=== PATIENT | male | born 1955 | race Caucasian/White ===

== ENCOUNTER → 2019-01-22 12:43 | Outpatient (CLI) | payer OTHER, SELFPAY ==
--- NOTE | 2019-01-22 12:50 | XR_ITS ---
XR shoulder LT min 2V HISTORY: Pain following injury ITS.REASON: 3 views ORDERING PHYSICIAN: Rebeca Matias MD PATIENT AGE: 63 years Comparison: 01/17/2019 FINDINGS: There remains prominence of the AC joint space with minimal ossification in the joint space. The glenohumeral joint has an unremarkable appearance. No acute fracture is evident. IMPRESSION: No change in AC joint separation
== END ==
PROVIDERS: PCP Physician Assistant Medical; Visit Provider Orthopaedic Surgery
DX: S43.102A Unspecified dislocation of left acromioclavicular joint, initial encounter (principal)
CPT/HCPCS: 73030

== ENCOUNTER → 2019-02-24 15:24 | Outpatient (CLI) | payer OTHER, SELFPAY ==
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
== END ==
PROVIDERS: PCP Physician Assistant Medical; Visit Provider Orthopaedic Surgery
DX: S49.91XA Unspecified injury of right shoulder and upper arm, initial encounter (principal)
CPT/HCPCS: 73050

== ENCOUNTER → 2019-05-30 15:39 | Outpatient (CLI) | payer OTHER, SELFPAY ==
--- NOTE | 2019-05-30 15:44 | MR_ITS ---
PROCEDURE: MR SHOULDER LT WO CON CLINICAL INDICATION: Ac Joint pain Left shoulder injury with pain, shoulder separation, limited range of motion, AC separation COMPARISON: XR AC JOINT LT from 05/30/2019 TECHNIQUE: Routine multiplanar multi echo sequences are performed without gadolinium enhancement. FINDINGS: There is thickening of the supraspinatus tendon with full-thickness tear involving the main portion/anterior aspect of the supraspinatus tendon. There are some intact fibers posteriorly. The muscle and tendon are not retracted. There is separation of the acromioclavicular joint with fluid in the AC joint space and edema in the region of the acromioclavicular joint. The infraspinatus tendon, subscapularis tendon, and teres minor tendons appear intact. No obvious labral tear. Bicipital tendon is in the expected location. Small subarticular cystic changes are present at the greater tuberosity IMPRESSION: 1. Acromioclavicular separation with edema at the acromioclavicular joint space 2. Full-thickness tear of the anterior aspect and main body portion of the supraspinatus tendon with some intact fibers posteriorly. No muscle or tendon retraction Dictated by: Zana Cabrera MD 05/31/2019 06:57 Electronically signed by Zana Cabrera MD in [place] 05/31/2019 11:15
--- NOTE | 2019-05-30 15:44 | XR_ITS ---
PROCEDURE: XR AC JOINT LT CLINICAL INDICATION: Ac joint pain , Previous injury COMPARISON: MRI scan left shoulder 05/30/2019 FINDINGS: The clavicle is intact. There is a gap between the distal clavicle and acromion process of 1.7 cm consistent with [id number] AC separation. The humeral head and glenoid appear normal. There are no soft tissue calcifications. The left upper 3-4 ribs appear intact. IMPRESSION: Moderate and likely posttraumatic AC separation as noted Dictated by: Dr. Kemar Hutchins MD 06/01/2019 11:[address] Kemar Hutchins MD in [place] 06/01/2019 11:02
== END ==
PROVIDERS: PCP Physician Assistant Medical; Referring Provider Orthopaedic Surgery; Visit Provider Orthopaedic Surgery
DX: M25.512 Pain in left shoulder (principal)
CPT/HCPCS: 73050; 73221

== ENCOUNTER → 2021-08-11 10:16 | Outpatient (CLI) | payer BC, SELFPAY | PROVIDERS: Visit Provider Nurse Practitioner | DX: Z20.822 Contact with and (suspected) exposure to COVID-19 (principal) | CPT/HCPCS: C9803; U0003; U0005 ==

== ENCOUNTER → 2021-08-15 09:38 | Outpatient (CLI) | payer BC, SELFPAY | PROVIDERS: PCP Physician Assistant Medical; Visit Provider Nurse Practitioner | DX: Z20.822 Contact with and (suspected) exposure to COVID-19 (principal) | CPT/HCPCS: C9803; U0003; U0005 ==

== ENCOUNTER 2021-12-16 19:18 | Emergency (ER) | payer BC, SELFPAY ==
[2021-12-16 19:19] VITALS: BP 182/87; PULSE 76; RESP 18; TEMP 36.6; O2SAT 97; BMI 36.6
[2021-12-16 19:50] VITALS: BP 174/98; PULSE 79; RESP 22; O2SAT 97; BMI 32.3
--- NOTE | 2021-12-16 19:55 | HMH.EDUTC ---
[facility] [place] Condition on Discharge: Fair Time of Disposition: 20:13 <Virginia Snowden - Last Filed: 12/16/21 19:55> <Rene Cerna - Last Filed: 12/16/21 21:13> Clinical Impression: Chest discomfort, Hypertensive emergency Chest pain Qualifiers: Chest pain type: unspecified Qualified Code(s): R07.9 - Chest pain, unspecified Disposition: Home, Self-Care Instructions: DI for Chest Pain Additional Instructions: use meds and call pcp for follow up and recheck if needed Referrals: Nata Vazquez PA [Primary Care Provider] - Dev Langston MD [Staff Physician] - Medical Decision Making - Herman Inquiry Pt receiving controlled substance: No Herman was queried for this patient: No <Virginia Snowden - Last Filed: 12/16/21 19:55> - Lab Data Lab results reviewed: Yes: I reviewed the patient's lab results. Result diagrams: 12/16/21 20:00 12/16/21 20:00 - JOSE GUADALUPE Score for Non-Stemi Age of Patient: 60-69 years old Heart Rate: 70-89 bpm Systolic Blood Pressure: 160-199 mmHg Serum Creatinine: 0.80-1.19 mg/dl CHF [place] Class: I-No CHF Other Risk Factors: None Non-Stemi Risk Score: 84 <Rene Cerna - Last Filed: 12/16/21 21:13> Vital Signs: 12/16/21 19:19 12/16/21 19:50 12/16/21 20:05 Temperature 97.8 F Temperature Source Oral Pulse Rate 76 Pulse Rate [Left] 76 79 Respiratory Rate 18 22 14 Blood Pressure 182/87 H Blood Pressure [Right Arm] 182/87 H 174/98 H Blood Pressure Mean [Right Arm] 118 123 Blood Pressure Source [Right Arm] Automatic Cuff 02 Sat by Pulse Oximetry 97 97 95 Oxygen Delivery Method Room Air Room Air - Lab Data Lab Results 12/16/21 20:00: WBC 5.6, RBC 4.88, Hgb 15.5, Hct 44.6, MCV 91.4, MCH 31.7 H, MCHC 34.7, RDW 13.1, Plt Count 238, MPV 7.9, Neut % (Auto) 59.7, Lymph % (Auto) 23.4, [place] % (Auto) 12.4 H, Eos % (Auto) 2.4, Baso % (Auto) 2.1 H, Neut # (Auto) 3.3, Lymph # (Auto) 1.3, [place] # (Auto) 0.7, Eos # (Auto) 0.1, Baso # (Auto) 0.1, ESR 14 12/16/21 20:00: Sodium 137, Potassium 4.0, Chloride 104, Carbon Dioxide 26, Anion Gap 11.0, BUN 17, Creatinine 0.80, Estimated Creat Clear 106, Estimated GFR 97, Est GFR ( Amer) 117, Glucose 221 H, Calcium 9.6, Troponin I < 0.01, C-Reactive Protein 3.1 12/16/21 20:00: Total Bilirubin 0.4, Direct Bilirubin 0.1, Conjugated Bilirubin 0.0, Indirect Bilirubin 0.3, Unconjugated Bilirubin 0.3, AST 61 H, ALT 83 H, Alkaline Phosphatase 108, Total Protein 7.0, Albumin 4.2 12/16/21 20:00: Hemoglobin A1c 7.1 H Orders (Tests/Meds): ED MEDICATIONS Generic Name Dose Route Start Last Admin Trade Name Freq PRN Reason Stop Dose Admin Sodium Chloride 1,000 mls @ 999 mls/hr 12/16/21 20:15 12/16/21 20:08 Sod Chlor 0.9% 1000ml Bag IV 12/16/21 21:15 999 mls/hr .Q1H1M ALTHEA Administration Sodium Chloride 10 ml 12/16/21 20:05 Sodium Chloride 0.9% 10ml Flush Syringe IV 01/15/22 20:04 NEEDED PRN Maintain IV Site Sodium Chloride 8 ml 12/16/21 20:35 Sodium Chloride 0.9% 10ml Vial IV 01/15/22 20:34 NEEDED PRN dilute pepcid Discontinued Medications Generic Name Dose Route Start Last Admin Trade Name Freq PRN Reason Stop Dose Admin Aspirin 243 mg 12/16/21 20:06 12/16/21 20:09 Aspirin 81mg Chewable Tablet PO 12/16/21 20:07 243 mg ONCE ONE Administration Famotidine 20 mg 12/16/21 20:35 12/16/21 20:50 Famotidine 20mg/2ml Vial IV 12/16/21 20:36 20 mg ONCE ONE Administration Metoclopramide HCl 10 mg 12/16/21 20:35 12/16/21 20:50 Metoclopramide Hcl 10mg/2ml Vial IVP 12/16/21 20:36 10 mg ONCE ONE Administration ORDERS Category Date Time Status T4 (Thyroxine) Stat Lab 12/16/21 21:08 Ordered TSH [Thyroid Stimulating Hormone] Stat Lab 12/16/21 21:08 Ordered Troponin I Q3H Lab 12/16/21 23:15 Ordered Troponin I Q3H Lab 12/17/21 02:15 Ordered Urinalysis-Acute [Urinalysis and Microscopic] Stat Lab 12/16/21 20:05 Ordered Medical Dec
--- NOTE | 2021-12-16 19:57 | ECG_ITS ---
APPROVED REPORT Exam: Resting ECG HR:75 bpm ECG Measurements Heart Rate 75 AXES MS 191 P 22 QRSd 102 QRS 39 QT 367 T 38 QTc 396 Conclusion SINUS RHYTHM NORMAL ECG UNCONFIRMED REPORT Electronically signed by : Tam Palma MD 12/17/2021 09:03:10
[2021-12-16 20:05] VITALS: BP 182/87; PULSE 76; RESP 14; O2SAT 95
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
[2021-12-16 20:14] LABS: Basophils # 0.1 K/mm3 (0-0.2); Basophils % 2.1 % (0.1-2.0); Chloride 104 mmol/L (98-107); Eosinophils # 0.1 K/mm3 (0.0-0.4); Eosinophils % 2.4 % (0.1-12.0); Hematocrit 44.6 % (42.0-52.0); Hemoglobin 15.5 g/dL (14.1-18.0); Lymphocytes # 1.3 K/mm3 (0.7-4.5); Lymphocytes % 23.4 % (10-50); Mean Corpuscular HGB Conc 34.7 g/dL (31.8-35.4); Mean Corpuscular Hemoglobin 31.7 pg (27.0-31.2); Mean Corpuscular Volume 91.4 fl (80-94); Mean Platelet Volume 7.9 fl (7.4-10.4); Monocytes # 0.7 K/mm3 (0.1-1.0); Monocytes % 12.4 % (1.7-9.3); Neutrophils # 3.3 K/mm3 (1.8-7.8); Neutrophils % 59.7 % (37.0-80.0); Platelet Count 238 K/mm3 (142-424); Red Blood Count 4.88 M/mm3 (4.60-6.20); Red Cell Distribution Width 13.1 % (11.5-17.5); Sodium 137 mmol/L (136-145); White Blood Count 5.6 K/mm3 (4.8-10.8)
[2021-12-16 20:17] LABS: Blood Urea Nitrogen 17 mg/dl (9-20); Calcium 9.6 mg/dl (8.4-10.2); Carbon Dioxide 26 mmol/L (22.0-30.0); Creatinine Clearance Estimated 106 mL/min (50-200); Estimated Glomerular Filt Rate 97 ml/min (>60); GFR (African American) 117 ML/MIN (>60); Glucose 221 mg/dl (74-100)
--- NOTE | 2021-12-16 20:18 | PC.NURSE ---
pt going to xray
[2021-12-16 20:22] LABS: C-Reactive Protein 3.1 mg/L (0-4)
[2021-12-16 20:29] LABS: Alanine Aminotransferase 83 U/L (12-78); Albumin Level 4.2 g/dl (3.5-5.0); Alkaline Phosphatase 108 U/L (38-126); Aspartate Amino Transferase 61 U/L (17-59); Bilirubin,Direct 0.1 mg/dl (0.0-0.4); Bilirubin,Indirect 0.3 mg/dL (0.0-0.9); Bilirubin,Total 0.4 mg/dl (0.2-1.3); Bilirubin,Unconjugated 0.3 mg/dL (0.0-1.1)
[2021-12-16 20:31] LABS: Troponin I < 0.01 ng/ml (0.00-0.034)
[2021-12-16 20:38] LABS: Erythrocyte Sedimentation Rate 14 mm/hr (0-20)
[2021-12-16 20:49] LABS: Hemoglobin A1C 7.1 % (4.0-6.0)
--- NOTE | 2021-12-16 21:03 | PC.NURSE ---
ER speaking with pt at this time
[2021-12-16 21:07] VITALS: BP 149/88; PULSE 74; RESP 19; TEMP 36.7; O2SAT 95
[2021-12-16 21:38] LABS: T4 (Thyroxine) 10.2 ug/dl (5.53-11.0)
[2021-12-16 21:51] LABS: Thyroid Stimulating Hormone 2.86 uIU/mL (0.465-4.68)
== END 2021-12-16 21:19 | disposition home or self-care (01) ==
LOC: ER 19:28 → UTC 19:28 → ER 19:54
PROVIDERS: Emergency Medicine; Emergency Provider Emergency Medicine; PCP Physician Assistant Medical
DX: R07.9 Chest pain, unspecified (principal); I16.1 Hypertensive emergency; Z79.899 Other long term (current) drug therapy
CPT/HCPCS: 71046; 80048; 80076; 83036; 84436; 84443; 84484; 85025; 85651; 86140; 93005; 96365; 96375; 99284

== ENCOUNTER → 2023-05-29 17:02 | Outpatient (CLI) | payer OTHER, BC, SELFPAY ==
--- NOTE | 2023-05-29 17:18 | XR_ITS ---
PROCEDURE INFORMATION: Exam: XR Chest Exam date and time: 05/29/2023 5:16 PM Age: 68 years old Clinical indication: Patient HX: Preop, HTN, shoulder SX; Additional info: SOA TECHNIQUE: Imaging protocol: Radiologic exam of the chest. Views: 2 views. COMPARISON: CR XR CHEST 2V 12/16/2021 8:11 PM FINDINGS: Lungs: No evidence of acute pulmonary disease or infiltrates; lung nuno appear clear. Pleural spaces: No evidence of pleural effusion, pneumothorax, or pleural thickening in the visualized pleural spaces. Heart/Mediastinum: No evidence of mediastinal widening or cardiac silhouette enlargement; the mediastinum and heart appear within normal limits for contour and size. Bones/joints: No evidence of acute osseous abnormalities within the visualized portions of the thoracic spine and ribs. Osseous structures appear appropriate for patient age. IMPRESSION: Negative study. No acute cardiopulmonary abnormalities identified. Osseous structures within the visualized portions of the thoracic spine and ribs show no acute abnormalities and appear appropriate for patient age.
== END ==
PROVIDERS: PCP Physician Assistant Medical; Visit Provider Physician Assistant Medical
DX: Z01.811 Encounter for preprocedural respiratory examination (principal)
CPT/HCPCS: 71046

== ENCOUNTER 2024-10-15 11:56 | Day surgery (SDC) | payer MEDICARE, SELFPAY ==
[2024-10-14 10:36] VITALS: BMI 33.0
[2024-10-15] VITALS (7 sets, daily range): BP systolic 89–114; BP diastolic 62–86; PULSE 77–110; RESP 14–20; TEMP 36.2–36.6; O2SAT 93–99
[2024-10-15] MEDS: LACTATED RINGERS 1000ML 1,000 ML 50 ML IV (12:42)
[2024-10-15 12:44] LABS: POC Glucose,Bedside 88 (70-110)
--- NOTE | 2024-10-15 12:56 | P.PNANES_ITS ---
[facility] Disclaimer: The information contained in this section may have been updated after the patient was seen, as this information can be updated by other users. Medical History Acid reflux Hypothyroidism Hypercholesterolemia Hypertension Diabetes Surgical History Hx of cornea transplant Hx of colonoscopy History of testicular surgery Hx of shoulder surgery Family History (Updated 10/15/24 @ 12:30 by Bettye De La Cruz RN) Mother Family history of diabetes mellitus type II Daughter No problems noted. Father Family history of myocardial infarction Social History Smoking Status: Former smoker alcohol intake: current substance use type: denies use current occupational status: employed Travel in the last 8 weeks: Inside the [place] [facility] Anesthesia Checklist Patient Identification Patient Identification: Verbal (Name & ) Structural Data Admitted From: Home Planned Operative Procedure/s: colonoscopy Consent for Planned Operative Procedure(s) Verified: Yes NPO Status Verified Time NPO: 00:00 Airway Assessment Mallampati Score:: Class II C-Spine Mobility Assessed: Yes TMJ Mobility Assessed: Yes Dentition: Good Dentition Neurological Assessment Level of Consciousness: Awake, Alert and Appropriate Anesthesia Plan Anesthesia Risk discussed: Yes Anesthesia Plan: Verified ASA Class: II Anesthesia Type: MAC
--- NOTE | 2024-10-15 13:06 | EXP.HP ---
History of Present Illness *Admission Date: 10/15/24 *Reason for visit:: Screening/surveillance *History of present illness: Mr. Tovar is a 69-year-old gentleman who is here for follow-up screening/surveillance colonoscopy. His last colonoscopy was 13 years ago and was normal. The examination is deemed medically necessary for screening/surveillance colonoscopy. The patient has been seen, interviewed and examined prior to the procedure by both myself and the anesthesia provider. [facility] Disclaimer: The information contained in this section may have been updated after the patient was seen, as this information can be updated by other users. Medical History (Updated 10/15/24 @ 13:15 by Colby Figueredo II, MD) Acid reflux Hypothyroidism Hypercholesterolemia Hypertension Diabetes Surgical History Hx of cornea transplant Hx of colonoscopy History of testicular surgery Hx of shoulder surgery Family History (Updated 10/15/24 @ 12:30 by Bettye De La Cruz RN) Mother Family history of diabetes mellitus type II Daughter No problems noted. Father Family history of myocardial infarction Social History (Updated 10/15/24 @ 12:57 by Car Up CRNA) Smoking Status: Former smoker alcohol intake: current substance use type: denies use current occupational status: employed Travel in the last 8 weeks: Inside the [place] Have you lived/traveled outside US in past 30 days?: No Contact w/someone who lives/traveled outside US past 30 days?: No Exposure to someone with infectious disease in past 14 days?: No Do you have a fever (greater than 100.4 F or 38 C)?: No Have you tested positive for COVID-19: No Exposed to someone with COVID-19 in past 14 days?: No Do you have a sore throat?: No Do you have a cough?: No Do you have any weakness?: No Are you experiencing any nausea/vomitting?: No Do you have any diarrhea?: No Are you experiencing any unusual bleeding?: No Do you have any muscle aches/pain?: No Do you have any abdominal pain?: No Are you experiencing loss of taste or smell?: No Other Medical History Have you received the Flu Vaccine for this season: Yes Have you received the Pneumonia Vaccine: Yes Review of Systems Review of Systems Review of systems (narrative): Negative *Cardiovascular Comments: Negative *Gastrointestinal Comments: Negative *Genitourinary Comments: Negative *Musculoskeletal Comments: Negative *Neurologic Comments: Negative Meds Home Medications and Allergies Home Medications ?Medication ?Instructions ?Recorded ?Confirmed ?Type clonidine HCl 0.1 mg tablet 0.1 mg PO DIRECTED htn 12/16/21 10/15/24 History levothyroxine 125 mcg tablet 125 mcg PO DAILY thyroid 12/16/21 10/15/24 History rosuvastatin 5 mg tablet 5 mg PO DIRECTED hld 12/16/21 10/15/24 History valsartan 160 mg tablet 160 mg PO DAILY htn 12/16/21 10/15/24 History sodium,potassium,mag sulfates 17.5 See Rx Instructions PO .COMPLEX 09/30/24 Rx gram-3.13 gram-1.6 gram oral soln #354 mL (Suprep Bowel Prep Kit) semaglutide 2 mg/dose (8 mg/3 mL) 2 mg SQ WEEKLY 10/14/24 10/15/24 History subcutaneous pen injector (Ozempic) cetirizine 10 mg tablet (Zyrtec) 10 mg PO DAILY 10/15/24 10/15/24 History New Prescriptions to Start Prescriptions: Allergies Allergy/AdvReac Type Severity Reaction Status Date / Time No Known Allergies Allergy Verified 10/15/24 12:30 Exam Data for Last 24 hours Vital signs and Labs for Last 24 Hours: Temp Pulse Resp BP Pulse Ox O2 Del Method O2 Flow Rate 97.9 F 77 20 114/86 95 Nasal Cannula 5 10/15/24 12:34 10/15/24 12:34 10/15/24 12:34 10/15/24 12:34 10/15/24 12:34 10/15/24 13:05 10/15/24 13:05 Laboratory Results - last 24 hr 10/15/24 12:37: POC Glucose 88 I & O for Last 24 hours: Intake & Output 10/12/24 10/13/24 10/14/24 10/15/24 23:59 23:59 23:59 23:59 Weight 230 lb *Routine HEENT Exam Head: Present normocephalic Eye: Present EOMI and PERRL ENT: Present mucous membranes moist *Routine Neck Exam Neck: Present supple *Routine Respiratory Exam Respiratory: Present CTA bilaterally *Routine Cardiovascular Exam Cardiovascular: Present RRR *Routine Abdominal Exam Abdominal: Present soft and normoactive bowel sounds; Absent tenderness *Routine Rectal Exam Rectal:: deferred *Routine Genitalia Exam Genitalia:: deferred *Routine Extremities Exam Extremities: Absent cyanosis, clubbing or edema *Routine Skin Exam Skin: Present warm; Absent rash *Routine Neurological Exam Neurological: Present alert and oriented X3 Assessment and Plan *Assessment and plan (1) Screening for colon cancer: Status: Acute Category: Medical Code(s): Z12.11 - Encounter for screening for malignant neoplasm of colon Plan A/P: 1. Screening/surveillance colonoscopy is the preprocedural diagnosis. The patient will be anesthetized/sedated using MAC sedation. The patient has been seen and examined. Cardiac and lung assessment prior to the examination is stable. Proceed with planned screening/surveillance colonoscopy
--- NOTE | 2024-10-15 13:15 | P.PCN_ITS ---
[facility] Procedure Note Date: 10/15/24 Time: 13:30 Procedure Note:: Colonoscopy Procedure Report: Colonoscopy Endoscopist: Colby Figueredo II, MD Referring physician: Nata Vazquez PA-C [id number] , [id number], [facility] [address] Date of Procedure: October 15, 2024 Equipment: Olympus 190 variable stiffness pediatric colonoscope Sedation: MAC sedation Indication: Mr. Tovar is a 69-year-old gentleman who is here for follow-up screening/surveillance colonoscopy. His last colonoscopy 13 years ago (at [facility] in [place]) was normal. He reports no abdominal pain, weight loss, change in his bowel habits or rectal bleeding. He reports no family history of colon cancer. Procedure: Prior to the procedure, a history and physical exam was performed, and patient's medications and allergies were reviewed. The risks, benefits and alternatives of the sedation and procedure were discussed with the patient. All questions were answered and informed consent was obtained. The patient was brought to the procedure room. Patient identification and proposed procedure were verified by the physician and the nurse. The patient was placed in a left lateral decubitus position and the scope was passed under direct vision. Throughout the procedure, the patient's blood pressure, pulse, and oxygen saturations were monitored continuously. The colonoscopy was accomplished without difficulty. The patient tolerated the procedure well. Findings: On digital rectal examination there was normal rectal tone. There were no external hemorrhoids. The prostate was 2-3+ with some asymmetry with right lobe pugh and firmer than left lobe of prostate. No prostate nodules. The c olonoscope was introduced through the anal canal to the rectum and advanced to the cecum. The ileocecal valve and appendiceal orifice were identified. The scope was advanced a short distance into the ileum which appeared grossly normal. The scope was then withdrawn into the colon. The cecum, ascending, transverse, descending and sigmoid colon were grossly normal. There were no mucosal abnormalities identified. There appeared to be some engorged venous columns in the proximal rectum (small rectal varices). Upon retroflexion within the rectum there were grade 2 internal hemorrhoids. The preparation was excellent throughout with Shannon Preparation Score of 9. The cecal time was 12 minutes. Impression: 1. Normal colonoscopy with intubation of the terminal ileum 2. Small proximal rectal varices 3. Grade 2 internal hemorrhoids Plan: The patient will not require surveillance colonoscopy again for 10 years by [facility] guidelines. I would encourage psyllium bulking fiber supplementation on a maintenance basis. I will obtain hepatic fibrotic markers based on findings of rectal varices.
[2024-10-15 13:54] LABS: Basophils % 0.4 % (0.1-2.0); Eosinophils % 0.8 % (0.1-12.0); Hemoglobin 14.2 g/dL (14.1-18.0); Lymphocytes # 0.7 K/mm3 (0.7-4.5); Mean Corpuscular HGB Conc 35.5 g/dL (31.8-35.4); Mean Corpuscular Hemoglobin 30.9 pg (27.0-31.2); Mean Corpuscular Volume 87.1 fl (80-94); Mean Platelet Volume 9.1 fl (7.4-10.4); Monocytes # 0.6 K/mm3 (0.1-1.0); Monocytes % 12.3 % (1.7-9.3); Neutrophils # 3.8 K/mm3 (1.8-7.8); Neutrophils % 73.1 % (37.0-80.0); Platelet Count 205 K/mm3 (142-424); Red Blood Count 4.59 M/mm3 (4.60-6.20); Red Cell Distribution Width 12.4 % (11.5-17.5); White Blood Count 5.2 K/mm3 (4.8-10.8)
[2024-10-15 14:07] LABS: Alanine Aminotransferase 45 U/L (12-78); Albumin Level 4.6 g/dl (3.5-5.0); Albumin/Globulin Ratio 1.9 (1.1-1.8); Alkaline Phosphatase 80 U/L (38-126); Anion Gap 13.3 mEq/L (5-15); Aspartate Amino Transferase 43 U/L (17-59); Bilirubin,Total 0.8 mg/dl (0.2-1.3); Blood Urea Nitrogen 14 mg/dl (9-20); Calcium 9.2 mg/dl (8.4-10.2); Carbon Dioxide 27 mmol/L (22.0-30.0); Chloride 102 mmol/L (98-107); Creatinine Clearance Estimated 104 mL/min (50-200); Estimated Glomerular Filt Rate 96 ml/min (>60); GFR (African American) 116 ML/MIN (>60); Globulin 2.4 g/dL (1.3-3.2); Glucose 70 mg/dl (74-100); INR 1.08 (0.9-1.1); Potassium 3.3 mmoL/L (3.5-5.1); Sodium 139 mmol/L (136-145)
--- NOTE | 2024-10-15 16:15 | P.PNANES_ITS ---
[facility] Anesthesia Record Part I Anesthesia Record I Intake, IV Amount: 2,000 Hydration: Adequate Estimated blood loss (mL): 0 Urine output (mL): 0 Blood Pressure: 113/62 SaO2: 98 Pulse Rate: 110 Airway Patency: Patent Respiratory Rate: 14 Temperature: 97.1 F Patient is:: Awake and Stable Stable to PACU at:: 16:10
[2024-10-18 00:08] LABS: ALT (SGPT) P5P 42 IU/L (0-55); AST (SGOT) P5P 32 IU/L (0-40); Alpha 2-Macroglobulins, Qn 293 mg/dL (110-276); Apolipoprotein A-1 111 mg/dL (101-178); Bilirubin, Total 0.4 mg/dL (0.0-1.2); Cholesterol, Total 149 mg/dL (100-199); Fibrosis Score 0.56 (0.00-0.21); GGT 31 IU/L (0-65); Glucose 72 mg/dL (70-99); Haptoglobin 139 mg/dL (32-363); Steatosis Score 0.35 (0.00-0.40); Triglycerides 99 mg/dL (0-149)
== END 2024-10-15 14:22 | disposition home or self-care (01) ==
PROVIDERS: PCP Physician Assistant Medical; Visit Provider Internal Medicine Gastroenterology
PROC: 0DJD8ZZ Inspection of Lower Intestinal Tract, Via Natural or Artificial Opening Endoscopic (ICD-10-PCS; CPT 45378; principal; 2024-10-15 13:30)
DX: I86.8 Varicose veins of other specified sites (principal); K64.1 Second degree hemorrhoids; Z12.11 Encounter for screening for malignant neoplasm of colon; E11.9 Type 2 diabetes mellitus without complications; Z79.85 Long-term (current) use of injectable non-insulin antidiabetic drugs
CPT/HCPCS: G0121; 36415; 80053; 82172; 82247; 82465; 82947; 82962; 82977; 83010; 83883; 84450; 84460; 84478; 85025; 85610; J7120

== ENCOUNTER 2024-11-06 08:15 | Outpatient (CLI) | payer MEDICARE, SELFPAY ==
--- NOTE | 2024-11-06 08:30 | US_ITS ---
FINAL REPORT TECHNIQUE: Sonographic images of the right upper quadrant were obtained. 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 LIVER: Homogeneous. No focal hepatic lesion. No intrahepatic biliary ductal dilatation. GALLBLADDER: No gallstones. No gallbladder wall thickening or pericholecystic fluid. COMMON DUCT: 6 mm. Normal for age. RIGHT KIDNEY: The right kidney measures 9.6 cm. There is no hydronephrosis, mass, or stone. There is mild right renal cortical thinning. FREE FLUID: None. IMPRESSION: Mild right renal cortical thinning. Otherwise, unremarkable right upper quadrant ultrasound. Authenticated and ERN
== END 2024-11-06 23:59 | disposition home or self-care (01) ==
LOC: RAD 08:16
PROVIDERS: PCP Physician Assistant Medical; Visit Provider Internal Medicine Gastroenterology
DX: R74.01 Elevation of levels of liver transaminase levels (principal); K74.00 Hepatic fibrosis, unspecified; K64.9 Unspecified hemorrhoids
CPT/HCPCS: 76705

== ENCOUNTER 2025-03-30 19:04 | Emergency (ER) | payer SELFPAY ==
--- OUTSIDE RECORDS SUMMARY | 2023-08-22 06:15 | XMS_ITS | Continuity of Care Document ---
Author Organization [facility] Address [address] [place] [address] Phone Care Team Providers Care Cork Insulator Name Role Phone Thalia OD, Lynda Unavailable Unavailable Allergies, Adverse Reactions, Alerts Substance Reaction Status Criticality No Known Allergies Active No Inform ation Medications Medication Instructions Dosage Effective Dates (start - stop) Status Comments oxycodone 5 mg tablet - Acti ve glipizide ER 10 mg tablet, extended release 24 hr - Active valsartan 160 mg-hydrochlorothiazide 25 mg tablet - Active levothyroxine 125 mcg tablet - Active Lagevrio 200 mg capsule (EUA) TAKE 4 CAPSULES BY MOUTH TWICE DAILY - Active Procedures Procedure Date REFRACTION COMPREHENSIVE EYE EXAM, NEW PATIENT Advance Directives Directive Yes / No Effective Date File Name No Information Encounters Encounter Description Practice Location Reason(s) For Visit Diagnoses Date Provider Providers Copied on Encounter [facility], [address], [place], [address], [place] tel:[phone] [facility] Diabetic eye exam (chief complaint) blurry vision (chief complaint) Type 2 diabetes mellitus without complicationsHis tory of corneal transplantAge-re lated nuclear cataract of both eyesPresbyopia 4 Thalia OD Lynda. [address] [facility] [place], [place], [id number] , [place]. [phone] Referring Provider: Lynda Vásquez OD L, [address] [place], [address] . tel:[phone] [facility], [address] [place], [place] [address], [place], [address], [place] tel:[phone] [facility] No Information 4 Thalia OD Lynda. [address] [place], [place], [id number] , [place]. tel:[phone] Family History Family Member Type Diagnosis Age At Onset No Information Payers Payer name Insurance type Covered libertarian ID Authorilira tijulianna(s) [employer] Medicare Replacement CI [id number] Social History Type Description Quantity Date Captured Comments Alcohol Use Details Unknown Caffeine Use Details Unknown Tobacco Use Status Current non-smoker Smoking Status Never smoker Non-Smoking Tobacco Use Details : No Details Available : No Details Available Sex Male Chief Complaint And Reason For Visit From encounter dated '08/22/2023 10:15'. Diabetic eye exam (chief complaint). Description: The 68 year old patient presents for evaluation of Diabetic eye exam in the right eye and left eye. Patient states:- Diabetic for one year- Treating with Glipizide- Managed by Dr. Nata Vazquez- Last A1C: 7, checked 2-3 weeks ago- Last FBS: 109, checked 2-3 weeks ago blurry vision (chief complaint). Description: The patient is present for evaluation of blurry vision in the right eye and left eye. It started about 1+ year(s) ago. Patient states:- Stable VA's- Only wearing OTC readers at this time (+2.00)- PT has had cataract surgery OU around 2007- PT has had cornea transplant os- Denies REGALADO and eye pain- Denies flashes and floaters- Denies current use of GTTs Reason For Referral Reason For Referral No Information Plan Of Treatment Date Type Action Status Patient Education Learning About Your Eye s completed History Of Present Illness Encounter Date Complaint History Of Prese nt Illness Diabetic eye exam The 68 year ol d patient presents for evaluation of Diabetic eye exam in the right eye and left eye. Patient states:- Diabetic for one year- Treating with Glipizide- Managed by Dr. Nata Vazquez- Last A1C: 7, checked 2-3 weeks ago- Last FBS: 109, checked 2-3 weeks ago blurry vision The patient is p resent for evaluation of blurry vision in the right eye and left eye. It started about 1+ year(s) ago. Patient states:- Stable VA's- Only wearing OTC readers at this time (+2.00)- PT has had cataract surgery [facility] around 2007- PT has had cornea transplant os- Denies REGALADO and eye pain- Denies flashes and floaters- Denies current use of GTTs Functional Status Date Functional Assessmen t No Information Instructions Date Instruction Additional Infor fabian Impression/Plan Related to Type 2 diabetes mellitus without complications Impression/Plan Related to Histo ry of corneal transplant Impression/Plan Related to Age-r elated nuclear cataract of both eyes Impression/Plan Related to Presb yopia Assessments Type Assessment Date assessment Type 2 diabetes mellitus without complications assessment History of corneal transplant Ja assessment Age-related nuclear cataract of both eyes assessment Presbyopia impression Type 2 diabetes mellitus without complications: E11.9 impression History of corneal transplant: Z 94.7 impression Age-related nuclear cataract of both eyes: H25.13 impression Presbyopia: H52.4 Patient Care Teams Name Effective Dates (start - stop) Status Members No Information
[2025-03-30 20:00] VITALS: BP 111/65; PULSE 88; RESP 16; TEMP 37; O2SAT 96; BMI 33.1
--- OUTSIDE RECORDS SUMMARY | 2025-03-30 20:22 | XMS_ITS | Clinical Summary ---
Author Organization [facility] Address [address] [place] [id number] Phone [email or web address] Care Team Providers Care Clinical Trials Manager Name Role Phone Nata Vazquez Primary Care Provider [phone] Allergies No known active allergies Immunizations Immunization Administration Dates Next Due Influenza, (Afluria Fluarix Flulaval Fluzone) quad, PF (CVX-150) 05/11/2021 Influenza, (Afluria Fluzone) quad, PF, 6-35 mo (CVX-161) 05/14/2017 Tdap (ADACEL BOOSTRIX) (CVX-115) 08/28/2019 Zoster (Shingrix) (TWO VIALS -MUST MIX) recombinant (CVX-187) 07/12/2021,05/11/2021 07/11/2021 Social History Tobacco Use Types Packs/Day Years Used Date Smoking Tobacco: Never Assessed Intimate Partner Violence Answer Date R ecorded Insults You Not on file 11/22/2020 Threatens You Not on file 11/22/2020 Screams at You Not on file 11/22/2020 Physically Hurt Not on file 11/22/2020 Intimate Partner Violence Score Not on file 11/22/2020 Stress Answer Date Recorded Stress in your Life 0 09/23/2020 Dealing with Stress Not on file 09/23/2020 Sex and Gender Information Value Date Recorded Sex Assigned at Not on file Legal Sex Male 8:46 AM [employer] Gender Identity Not on file Sexual Orientation Not on file Plan of Treatment Health Maintenance Due Date Last Done Comments CT Colonography 1956 Colonoscopy 1956 Colorectal Cancer Screening Combo 1955 DNA Cologuard 1956 Dental Cleaning/Exam 1956 FIT or FOBT Test 1956 Sigmoidoscopy 1956 Pneumococcal: 65+ Years (1 o f 1 - PCV) 2006 Covid-19 Immunization (1 - season) 2024 Influenza Immunization (#1) 04/13/202504/14, 05/14/2017 Tetanus Diphtheria and Pertussis Immunization (2 - Td or Tdap) 08/28/2029 08/28/2019 Zoster Immunization Completed 07/12/2021, 05/11/2021 HIB Immunization Aged Out No longer e ligible based on patient's age to complete this topic HPV Immunization Aged Out No longer e ligible based on patient's age to complete this topic Hepatitis A Immunization Aged Out No longer eligible based on patient's age to complete this topic Hepatitis B Immunization Aged Out No longer eligible based on patient's age to complete this topic Polio Immunization Aged Out No longer eligible based on patient's age to complete this topic Insurance [employer] [place] Care Teams Clinical Trials Manager Relationship Specialty Start Date End Date Nata Vazquez [address] [place] [id number] PCP - General Family Medicine 08/28/19
--- OUTSIDE RECORDS SUMMARY | 2025-03-30 20:22 | XMS_ITS | Clinical Summary ---
Author Organization [facility] Address [address] [id number] Care Team Providers Care Company Accountant Name Role Phone Lili Mcgee MD Primary Care Provider [phone] Family History Medical History Relation Name Comments Conversions - Other Father Patient' s father is Hypertension Father Diabetes Mother Relation Name Status Comments Father Mother Social History Tobacco Use Types Packs/Day Years Used Date Smoking Tobacco: Never Sex and Gender Information Value Date Recorded Sex Assigned at Not on file Legal Sex Male 6:01 PM EDT Gender Identity Not on file Sexual Orientation Not on file Last Filed Vital Signs Vital Sign Reading Time Taken Comments Blood Pressure - - Pulse - - Temperature - - Respiratory Rate - - Oxygen Saturation - - Inhaled Oxygen Concentration - - Weight 122 kg (270 lb) 12/22/2015 9:37 AM EDT Height 175.3 cm (5' 9 ) 12/22/2015 9:37 AM EDT Body Mass Index 39.87 12/22/2015 9:37 AM EDT Plan of Treatment Not on file Care Teams Company Accountant Relationship Specialty Start Date End Date Lili Mcgee MD [address] [place] [address] [place] [id number] PCP - General 12/24/20
--- OUTSIDE RECORDS SUMMARY | 2025-03-30 20:22 | XMS_ITS | Clinical Summary ---
Author Organization [facility] Address [address] [place] [id number] Care Team Providers Care Hat Steamer Name Role Phone Nata Vazquez Primary Care Provider [phone] Allergies No known active allergies Medications valsartan-hydroc hlorothiazide (DIOVAN-HCT) 80-12.5 MG per tablet Take 1 tablet by mouth Daily. Active levothyroxine (SYNTHROID, LEVOTHROID) 125 MCG tablet Take 125 mcg by mouth Daily. Active cetirizine (zyrTEC) 10 MG tablet Take 10 mg by mouth Daily. Active vitamin E 1000 UNIT capsule Take 2,000 Units by mouth Daily. Active cholecalciferol (VITAMIN D3) 1000 UNITS tablet Take 1,000 Units by mouth Daily. Active Multiple Vitamins-Mineral s (MULTIVITAMIN ADULT PO) Take by mouth. Active Active Problems No known active problems Social History Tobacco Use Types Packs/Day Years Used Date Smoking Tobacco: Never Smokeless Tobacco: Former Chew Quit: 01/09/2016 Alcohol Use Standard Drinks/Week Comments Yes 5 (1 standard drink = 0.6 oz pur e alcohol) Abuse Screen Answer Date Recorded Unsafe at Home or Work/School Not on file Feels Threatened by Someone? Not on file 06/2023 Does Anyone Keep You from Co ntacting Others or Doint Things Outside the Home? Not on file 05/23/2023 Physical Sign of Abuse Present Not on file 1 Housing Stability Answer Date Recorded Current Living Arrangements Not on file 05/13 Potentially Unsafe Housing Conditions Not on tatyana e 05/23/2023 Family and Community Support Answer Gopi e Recorded Help with Day-to-Day Activities Not on file 05/23/2023 Lonely or Isolated Not on file 05/23/2023 Employment Answer Date Recorded Do you want help finding or keeping work or a junior b? Not on file 05/23/2023 Disabilities Answer Date Recorded Concentrating, Remembering, or Making Decisions Difficulty Not on file 05/23/2023 Doing Errands Independently Difficulty Not on fi le 05/23/2023 Education Answer Date Recorded Help with school or training? Not on file Preferred Language Not on file 05/23/2023 Sex and Gender Information Value Date Recorded Sex Assigned at Not on file Legal Sex Male 4:15 PM EST Gender Identity Not on file Sexual Orientation Not on file Last Filed Vital Signs Vital Sign Reading Time Taken Comments Blood Pressure 112/56 07/11/2016 10:15 AM EST Pulse 77 07/11/2016 10:15 AM EST Temperature 36.4 C (97.6 F) 07/11/2016 10:15 AM EST Respiratory Rate 16 07/11/2016 10:15 AM EST Oxygen Saturation 98% 07/11/2016 10:15 AM EST Inhaled Oxygen Concentration - - Weight 117 kg (257 lb 4 oz) 07/11/2016 6:56 AM EST Height 177.8 cm (5' 10 ) 07/11/2016 6:56 AM EST Body Mass Index 36.91 07/11/2016 6:56 AM EST Plan of Treatment Health Maintenance Due Date Last Done Comments ANNUAL PHYSICAL 1955 HEPATITIS C SCREENING 1956 TDAP/TD VACCINES (1 - Tdap) 1975 COLOGUARD 2001 COLON CANCER SCREENING 5 YEAR SIGMOIDOSCOPY 2001 COLONOSCOPY [address] CANCER SCREENING [address] CT COLONOGRAPHY 2001 FECAL OCCULT BLOOD TEST 2001 FIT Testing (1 year) 2001 Pneumococcal Vaccine 50+ (1 of 1 - PCV) 2006 ZOSTER VACCINE (1 of 2) 2006 AAA SCREEN ONCE 2021 COVID-19 Vaccine (1 - 2023- season) 2024 INFLUENZA VACCINE 05/13/2025 Insurance [employer] Care Teams Hat Steamer Relationship Specialty Start Date End Date Nata Vazquez PA PCP - General Physician Director Data Architecture 07/11/16
--- OUTSIDE RECORDS SUMMARY | 2025-03-30 20:22 | XMS_ITS | Patient Health Record ---
Author Organization [facility] Physician Ayaan watson Billing Info Address [address] [place], [place] [phone] Support Name Relationship Address Phone Dionisio Tovar Guarantor Unknown [phone] Reason For Referral No Information Plan Of Treatment No Information
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
[2025-03-30] MEDS: METHOCARBAMOL 500MG TABLET 1500 MG PO (21:48)
[2025-03-30] MEDS: IBUPROFEN 600 MG TABLET PO (21:48)
[2025-03-30] MEDS: ACETAMINOPHEN 500MG TAB 1000 MG PO (21:48)
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
[2025-03-30 23:01] VITALS: BP 140/70; PULSE 88; RESP 20; TEMP 36.7; O2SAT 98
== END 2025-03-30 23:02 | disposition home or self-care (01) ==
PROVIDERS: Emergency Provider Student in an Organized Health Care Education/Training Program; PCP Physician Assistant Medical
DX: M54.2 Cervicalgia (principal); R51.9 Headache, unspecified; M25.511 Pain in right shoulder; M25.512 Pain in left shoulder; V49.40XA Driver injured in collision with unspecified motor vehicles in traffic accident, initial encounter; Y92.410 Unspecified street and highway as the place of occurrence of the external cause
CPT/HCPCS: 70450; 72125; 73030; 99283; 99285

== ENCOUNTER 2025-06-09 13:09 | Outpatient (CLI) | payer MEDICARE, SELFPAY ==
--- NOTE | 2025-06-09 13:14 | MR_ITS ---
FINAL REPORT CLINICAL HISTORY: MID BACK PAIN WORSE ON RIGHT SIDE FINDINGS: Multiplanar MR imaging of the thoracic spine was performed without contrast. On the sagittal T2-weighted images, there is mild decreased signal throughout the thoracic discs. There is no evidence of fracture. The vertebral alignment is normal. The thoracic cord demonstrates normal signal and configuration. There is a small hemangioma in an upper thoracic vertebrae, eccentric to the right. There is no evidence of canal stenosis or cord compression. On the axial images, no focal disc protrusion is identified. There is no evidence of significant canal stenosis. No paraspinous soft tissue abnormality is seen. IMPRESSION: No acute bony abnormality, disc protrusion or canal stenosis. Reviewed, Interpreted and Dictated by Rylan Mcgill MD Transcribed by Ping Valdivia Authenticated and [facility]
--- NOTE | 2025-06-09 13:15 | MR_ITS ---
FINAL REPORT CLINICAL HISTORY: LUMBAR/THORACIC PAIN BILATERAL LEG PAIN , NUMBNESS AND TINGLING LBP WORSE ON RIGHT SIDE NO INJURY FINDINGS: Multiplanar MR imaging of the lumbar spine was performed without contrast. On the sagittal T2-weighted images, there is abnormal decreased signal at L3-4, L4-5, and L5-S1. The vertebrae are of normal height. The vertebral alignment is normal. L1-2: There is no significant canal stenosis or neural foraminal narrowing. L2-3: Mild diffuse disc bulge with mild bilateral neuroforaminal narrowing. L3-4: Mild to moderate diffuse disc bulge with mild to moderate bilateral neuroforaminal narrowing. L4-5: Moderate diffuse disc bulge and facet hypertrophy. Moderate to high-grade right and moderate left neuroforaminal narrowing. L5-S1: Mild diffuse disc bulge with mild bilateral neuroforaminal narrowing. IMPRESSION: Multilevel degenerative disc disease with neuroforaminal compromise, most evident on the right at L4-5. Reviewed, Interpreted and Dictated by Rylan Mcgill MD Transcribed by Ping Valdivia Authenticated and . [facility]
--- OUTSIDE RECORDS SUMMARY | 2025-06-09 13:53 | XMS_ITS | Clinical Summary ---
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[employer] Gender Identity Not on file Sexual Orientation Not on file Plan of Treatment Health Maintenance Due Date Last Done Comments CT Colonography 1956 Colonoscopy 1956 Colorectal Cancer Screening Combo 1955 DNA Cologuard 1956 Dental Cleaning/Exam 1956 FIT or FOBT Test 1956 Sigmoidoscopy 1956 Pneumococcal: 50+ Years (1 o f 1 - PCV) 2006 Covid-19 Immunization (1 - season) 2025 Influenza Immunization (#1) 04/13/202504/14, 05/14/2017 Tetanus Diphtheria [...] Insurance [employer]ELIO [employer]TI [employer] [place] Care Teams Ecg Technician Relationship Specialty Start Date End Date Nata Vazquez [address] [place] [id number] PCP - General Family Medicine 08/28/19
--- OUTSIDE RECORDS SUMMARY | 2025-06-09 13:53 | XMS_ITS | Clinical Summary ---
Author Organization [facility] Address [address] [place] [id number] Care Team Providers Care Commission Broker Name Role Phone Nata Vazquez Primary Care Provider [phone] Allergies No known active allergies Medications valsartan-hydroc [...] (257 lb 4 oz) 07/11/2016 6:[address] Height 177.8 cm (5' 10 ) 07/11/2016 [...] of 2) 2006 AAA SCREEN ONCE 2021 INFLUENZA VACCINE 03/13/2025 COVID-19 Vaccine ( - season) 2025 Insurance [employer] Care Teams Commission Broker Relationship Specialty Start Date End Date Nata Vazquez PA PCP - General Physician Marketing Liaison 07/11/16
--- OUTSIDE RECORDS SUMMARY | 2025-06-09 13:53 | XMS_ITS | Patient Health Record ---
Author Organization [facility] Physician Ayaan watson Billing Info Address [address] [place], [place] [id number] Support Name Relationship Address Phone Dionisio Tovar Guarantor Unknown [phone] Reason For Referral No Information Plan Of Treatment No Information
--- OUTSIDE RECORDS SUMMARY | 2025-06-09 13:53 | XMS_ITS | Clinical Summary ---
Author Organization [facility] Address [address] [id number] Care Team Providers Care Floorworker Lasting Name Role Phone Lili Mcgee MD Primary Care Provider [phone] Family History Medical History Relation Name Comments [...] of Treatment Not on file Care Teams Floorworker Lasting Relationship Specialty Start Date End Date Lili Mcgee MD [address] [place] [address] [place] [id number] PCP - General 12/24/20
== END 2025-06-09 23:59 | disposition home or self-care (01) ==
LOC: RAD 13:09
PROVIDERS: PCP Physician Assistant Medical; Visit Provider Physician Assistant Medical
DX: M51.369 Other intervertebral disc degeneration, lumbar region without mention of lumbar back pain or lower extremity pain (principal); M99.73 Connective tissue and disc stenosis of intervertebral foramina of lumbar region
CPT/HCPCS: 72146; 72148